=== PATIENT | female | born 1970 | race Caucasian/White ===

== ENCOUNTER 2022-10-05 12:44 | Emergency (ER) | payer OTHER, SELFPAY ==
--- NOTE | ~2022-10-05 | XR_ITS ---
EXAMINATION: XR CHEST CLINICAL INFORMATION: Cough COMPARISON: 09/11/2014 TECHNIQUE: Frontal view of the chest was obtained. FINDINGS: The lungs are well expanded. There is no focal consolidation, edema, or effusion. No pneumothorax. The cardiomediastinal silhouette is within normal limits. No acute osseous abnormality. XR/XR chest 1V IMPRESSION: No acute pulmonary disease.
[2022-10-05 12:54] VITALS: BP 146/86; PULSE 118; RESP 16; TEMP 36.6; O2SAT 97; BMI 29.7
--- NOTE | 2022-10-05 12:54 | ED_ITS ---
HPI - URI/Sore Throat General Chief Complaint: General Medical <GENA Shetty - Last Filed: 10/05/22 12:59> Stated Complaint: ? COVID <GENA Shetty - Last Filed: 10/05/22 12:59> Time Seen by Provider: 10/05/22 13:59 <GENA Shetty - Last Filed: 10/05/22 12:59> Source: patient and family <GENA Norman Last Filed: 10/05/22 14:50> Mode of arrival: ambulatory <GENA Norman Last Filed: 10/05/22 14:50> Limitations: language barrier (Uzbek-speaking) <GENA Norman Last Filed: 10/05/22 14:50> History of Present Illness HPI Narrative: 52yoF who denies any medical history or denies taking any medications who is presenting to the ER with complaints of chills, fatigue, malaise and body aches that started yesterday. She reports that she was exposed to COVID 2 days ago. She is here with her daughter and her grand kids to just tested positive for COVID as well they have similar symptoms. She denies any measured fevers, dizziness, neck pain / stiffness, change in vision, ear pain, sore throat, trouble swallowing or breathing, chest pain or shortness of breath, dyspnea on exertion, orthopnea, palpitations, paresthesias, nausea/vomiting / diarrhea constipation, black or bloody stools, abdominal pain, flank pain, dysuria, hematuria, abnormal vaginal discharge, rashes, recent travel, lower extremity more calf tenderness or any other symptoms complaints or concerns at this time. <GENA Norman - Last Filed: 10/05/22 14:50> MD elicited complaint: other (Chills, body aches ) <GENA Norman Last Filed: 10/05/22 14:50> Onset (ago): day(s) (2) <GENA Norman - Last Filed: 10/05/22 14:50> Consistency: constant and progressively worsening <GENA Norman Last Filed: 10/05/22 14:50> Severity: mild <GENA Norman Last Filed: 10/05/22 14:50> Able to tolerate fluids by mouth: Yes <GENA Norman - Last Filed: 10/05/22 14:50> Exacerbating factors: nothing <GENA Norman Last Filed: 10/05/22 14:50> Relieving factors: nothing <GENA Norman Last Filed: 10/05/22 14:50> Context: sick contacts and other(s) with similar symptoms <GENA Norman Last Filed: 10/05/22 14:50> Associated symptoms: chills, myalgias and headache <GENA Norman Last Filed: 10/05/22 14:50> Treatments prior to arrival: none <GENA Norman Last Filed: 10/05/22 14:50> Related Data Home Medications: Previous Rx's Medication Instructions Recorded acetaminophen 160 mg/5 mL oral 975 mg (30.4688 mL) PO Q6H PRN 10/05/22 liquid fever or pain #473 mL ibuprofen 100 mg/5 mL oral 800 mg (40 mL) PO Q6H PRN fever or 10/05/22 suspension (Children's Ibuprofen) pain #473 mL nirmatrelvir 300 mg (150 mg See Rx Instructions PO .COMPLEX 10/05/22 x2)-ritonavir 100 mg tablet,dose #15 ea pack(EUA) (Paxlovid) <GENA Shetty Last Filed: 10/05/22 12:59> Allergies/Adverse Reactions: Allergies Allergy/AdvReac Type Severity Reaction Status Date / Time NSAIDS (Non-Steroidal Allergy Unknown UNKNOWN Unverified 07/14/20 18:46 Anti-Inflamma [NSAIDS (NON-STEROIDAL ANTI-INFLAMMA] <GENA Shetty Last Filed: 10/05/22 12:59> Review of Systems Review of Systems: Constitutional : No Weight loss, No Fever, + Chills, No Night Sweats, + Fatigue, + Malaise ENT/Mouth : No Hearing loss, No Ear Pain, No Nasal Congestion, No Sinus Pain, No Hoarseness, No sore throat, No Rhinorrhea, No Swallowing Difficulty Eyes: No Eye Pain, No Swelling, No Redness, No Foreign Body, No Discharge, No Vision Changes Cardiovascular : No Chest Pain, No SOB, No Dyspnea on Exertion, No Orthopnea, No Edema, No Palpitations Respiratory : No Cough, No Sputum, No Wheezing, No Smoke Exposure, No Dyspnea Gastrointestinal : No Nausea, No Vomiting, No Diarrhea, No Constipation, No abdominal Pain, No Hematochezia, No Melena Genitourinary : no irregular bleeding, No Dysuria, No Urinary Frequency, No Hematuria, No Urinary Incontinence, No Urgency, No Flank Pain, No Urinary Flow Changes, No Hesitancy Musculoskeletal : No joint pain, + Myalgias, No Joint Swelling Skin : No Skin Lesions, No rash Neuro : No Weakness, No Numbness, No Paresthesias, No Loss of Consciousness, No Dizziness, No Headache Psych : No Anxiety/Panic, No Depression, No SI/HI/AH/VH, No Social Issues, Heme/Lymph: No Bruising, No Bleeding,No Lymphadenopathy Endocrine : No Polyuria, No Polydipsia, No Temperature Intolerance <GENA Norman - Last Filed: 10/05/22 14:50> Yes all other systems are reviewed and are negative <GENA Norman - Last Filed: 10/05/22 14:50> [facility] Past Medical History Attestation statement: The following information was validated with the patient. <GENA Norman - Last Filed: 10/05/22 14:50> Source: old records reviewed, obtained from family and nursing notes reviewed <GENA Norman - Last Filed: 10/05/22 14:50> Social History Social History: Social History Advance Directives: No <GENA Shetty - Last Filed: 10/05/22 12:59> Physical Exam Vital Signs: Vital Signs: Last Vital Signs Temp 98.1 F 10/05/22 14:18 Pulse 109 H 10/05/22 14:18 Resp 16 10/05/22 14:18 BP 147/66 H 10/05/22 14:18 Pulse Ox 96 10/05/22 14:18 O2 Del Method 10/05/22 14:18 BMI result Body Mass Index 29.7 <GENA Shetty Last Filed: 10/05/22 12:59> Vital Signs: Last Vital Signs Temp 98.1 F 10/05/22 14:18 Pulse 109 H 10/05/22 14:18 Resp 16 10/05/22 14:18 BP 147/66 H 10/05/22 14:18 Pulse Ox 96 10/05/22 14:18 O2 Del Method 10/05/22 14:18 BMI result Body Mass Index 29.7 Vital signs reviewed. Blood pressure 146/86. Pulse 118 Respiration normal. Oxygen normal. Temperature normal. <GENA Norman - Last Filed: 10/05/22 14:50> Appearance: Alert. Oriented X3. No acute distress. Head: Normal external exam. Normocephalic. Atraumatic. Eyes: PERRLA. EOMI. Conjunctiva and sclera normal. Eyelids normal. ENT: EAC normal. TM's Normal. Pharynx normal. Uvula midline. Moist mucous membranes. No lesions/ulcerations or masses noted on the tongue. Normal voice. No trismus noted. No drooling noted. No muffled voice noted. Neck: Normal inspection. Neck supple. FROM. No adenopathy. Thyroid Normal. No meningeal signs. CVS: Normal heart rate and rhythm. Heart sound normal. Pulses normal throughout. No murmurs/rales/gallops. Respiratory: No respiratory distress. Painless inspiration. Breath sounds normal. No wheezes/rales/rhonchi noted. Chest nontender. No accessory muscle usage noted or decreased air movement noted. Abdomen: Soft and nontender. Back: Full range of motion noted. Nontender. Skin: Skin warm and dry. Normal skin color. Normal skin turgor. No rashes/lesions/lacerations noted. Extremities: Extremities exhibit normal range of motion and nontender. Neuro: Oriented X 3. No motor deficit. No sensory deficit. Reflexes normal. Normal steady gait. No focal neuro deficits noted. CN's II-XII intact bilaterally? Vascular: + radial pulses. Normal cap refill. No cyanosis noted to upper extremity nails <GENA Norman - Last Filed: 10/05/22 14:50> Course Course Course Narrative: RME-- 52yo F w/PMHx fibromyalgia, OA, depression c/o cough, rhinnorhea, sore throat, myalgias x few days. Admits was exposed to COVID on Saturday tachycardic in triage to 120's COVID-19/influenza/RSV, CXR, & EKG ordered in triage <GENA Shetty Last Fi led: 10/05/22 12:59> Reevaluation(s) Reevaluation #1: Patient positive for COVID. Chest x-ray within normal limits. No additional labs or imaging indicated at this time. Patient does not take any medications therefore she would be a candidate for antiviral for COVID Paxlovid. I gave her FAC she printed from online and patient will decide if she wants to take that or not. Will DC home with instructions to self isolate and to return if any new or worsening symptoms. Patient with family at bedside understand agree this plan. <GENA Norman Last Filed: 10/05/22 14:50> Time: 14:48 <GENA Norman Last Filed: 10/05/22 14:50> Medical Decision Making Medical Decision Making Lab Attestation: I reviewed the patient's lab results. <GENA Norman Last Filed: 10/05/22 14:50> Independent interpretation of EKG, rhythm strip, radiology study: Independent interp EKG,rhythm strip, radiology study My interpretation is CXR revealed FINDINGS: The lungs are well expanded. There is no focal consolidation, edema, or effusion. No pneumothorax. The cardiomediastinal silhouette is within normal limits. No acute osseous abnormality. XR/XR chest 1V IMPRESSION: No acute pulmonary disease. <GENA Norman Last Filed: 10/05/22 14:50> Independent historian (e.g., spouse, EMS, friend): Independent historian (e.g., spouse, EMS, friend) Clinical information obtained from an independent historian. History obtained from or confirmed by: Other (family) <GENA Norman Last Filed: 10/05/22 14:50> Discharge Plan Discharge Clinical Impression: COVID-19 <GENA Shetty Last Filed: 10/05/22 12:59> Patient Disposition: Home, Self-Care <GENA Shetty Last Filed: 10/05/22 12:59> Instructions: COVID-19 (Coronavirus Disease 2019) (ED) <GENA Shetty - Last Filed: 10/05/22 12:59> Prescriptions: New Paxlovid (EUA) 300 mg (150 mg x 2)-100 mg tablets,dose pack See Rx Instructions PO .COMPLEX Qty: 15 0RF Rx Instructions: take TWO 150 mg tablets of nirmatrelvir with ONE 100 mg tablet of ritonavir twice daily for 5 days. Dip 15 pills ibuprofen [Children's Ibuprofen] 100 mg/5 mL suspension 800 mg PO Q6H PRN (Reason: fever or pain) Qty: 473 0RF acetaminophen 160 mg/5 mL liquid 975 mg PO Q6H PRN (Reason: fever or pain) Qty: 473 0RF <GENA Shetty - Last Filed: 10/05/22 12:59> Referrals: Physician,Unknown J [Primary Care Provider] - 5 days (your pcp) <GENA Shetty - Last Filed: 10/05/22 12:59> Print Language: Uzbek <GENA Shetty - Last Filed: 10/05/22 12:59>
--- NOTE | 2022-10-05 12:55 | ECG_ITS ---
Test Reason : TACHYCARDIA Blood Pressure : / mmHG Vent. Rate : 119 BPM Atrial Rate : 119 BPM P-R Int : 150 ms QRS Dur : 086 ms QT Int : 326 ms P-R-T Axes : 029 -02 014 degrees QTc Int : 458 ms Sinus tachycardia Otherwise normal ECG When compared with ECG of 10-SEP-2014 23:55, No significant change was found Referred By: Liliana Sexton Electronically Signed By:AMY HIDALGO MD
--- OUTSIDE RECORDS SUMMARY | 2022-10-05 13:46 | XMS_ITS | Continuity of Care Document ---
:1970 Author Organization [facility] Address [address] [place] [id number]- Care Team Providers Name Role Phone Juani NORIEGA, Afia Stahl Primary Care Physician [place] [facility] [place]/11/20 - 01/21/20 [facility] [address] [place] [address]- [facility] Attending Physician: Admtr, Tan8 Admitting Physician: Admtr, Ar8 Referring Physician: Admtr, Ar8 Allergies, Adverse Reactions, Alerts Substance Reaction Severity Status NKA Active Medications albuterol CFC free 90 mcg/inh inhalation aerosol 1, puffs, Inhalation, 4 times a day, PRN, # 25 Gm, Refills 0, Tot. Refills 0, Maintenance, 11/21/17 11:45:44, Aerosol, Route to Pharmacy Electronically, [id number], [facility]/pharmacy #[id number], Compound Start Date: 11/21/17 Status: OrderedChildren's Ibuprofen Briceño 100 mg/5 mL oral suspension 20 mL = 400 mg, By Mouth, Every 6 hours, PRN as needed for pain, Take as needed with food or milk not to exceed 4 doses/day, # 240 mL, 0 Refills, Maintenance, 06/08/19 14:00:11 EDT, Suspension, instructions in filipino Start Date: 06/08/19 Status: OrderedFlonase 50 mcg/inh nasal spray 1 sprays, Nares, Both, 2 times a day, # 16 Gm, 2 Refills, Maintenance, 02/03/19 10:56:14 EDT, [place],1 sprays Nares, Both 2 times a day Start Date: 02/03/19 Status: OrderedFolding Wheeled Walker Folding Wheeled Walker, See Instructions, # 1 each, Refills 0, Tot. Refills 0, Maintenance, Wheeled walker to aid with mobility Dx: Left ankle sprain and chronic bilateral knee OA TALON 99 Ht 160 cm, Wt 178 lbs, 09/21/19 10:26:05 EST, Compound Start Date: 09/21/19 Status: Orderedgabapentin 100 mg oral capsule 200 mg, 2, capsule, By Mouth, 2 times a day, rx by rheumatology, # 120 capsule, Refills 0, Maintenance, 06/05/18 10:38:42 EDT Start Date: 06/05/18 Status: Orderednabumetone 750 mg oral tablet 1 tablet = 750 mg, By Mouth, 2 times a day, rx by rheumatology, # 60 tablet, 0 Refills, Maintenance,06/05/18 10:38:38 EDT, Tablet Start Date: 06/05/18 Status: Orderedomeprazole 20 mg oral enteric coated capsule 1 capsule = 20 mg, By Mouth, Daily, decrease in dose, # 90 capsule, 0 Refills, Maintenance, 02/07/1811:43:01 EDT, EC Capsule Start Date: 02/07/18 Status: OrderedPROzac 20 mg oral capsule 20 mg, 1, capsule, By Mouth, Daily, rx by psych, # 60 capsule, Refills 0, Maintenance, 04/18/17 15:50:03 EDT Start Date: 04/18/17 Status: Orderedpseudoephedrine 30 mg/5 mL oral liquid 10 mL = 60 mg, By Mouth, 4 times a day, PRN for cold symptoms, Take as needed for congestion, # 120 mL, 0 Refills, Maintenance, 12/02/18 16:53:45 EST, Liquid, directions in filipino Start Date: 12/02/18 Stop Date: 12/05/18 Status: OrderedReadi-Cat 2 oral suspension See Instructions, Oral Contrast 2 Bottles 450 ml each Dx: Hernia, # 900 mL, 0 Refills, Maintenance, 07/17/19 9:53:08 EDT, Oral Contrast; 2 Bottles 450 ml each; Dx: Hernia Start Date: 07/17/19 Status: OrderedSimply Saline 0.9% spray 1 sprays, Nares, Both, Every 4 hours, # 45 mL, 5 Refills, Maintenance, 02/03/19 10:56:15 EDT, 1 sprays Nares, Both Every 4 hours Start Date: 02/03/19 Status: OrderedTylenol Extra Strength 500 mg/15 mL oral liquid 15 mL = 500 mg, By Mouth, Every 4 hours, PRN as needed for pain, # 480 mL, 0 Refills, Maintenance, 12/02/18 16:56:05 EST, Liquid Start Date: 12/02/18 Status: Ordered Problem List Condition Effective Dates Status Health Status Informant Allergic rhinitis(Confirmed) Active Cholecystectomy(Confirmed) 12/07/11 Active Chronic back pain(Confirmed) Active Diastasis recti; no surgical Active intervention recommended(Confirmed) Dysuria(Confirmed) Active Fibroids(Confirmed) Active Fibromyalgia(Confirmed) Active GERD (gastroesophageal reflux Active disease)(Confirmed) Iron deficiency anemia(Confirmed) 12/07/11 Active Knee pain, bilateral-seen by NOES Active 03/09, dx w/ retropatellar chondrosis, referred to PT, lt knee w/ mild OA on xray from 2012(Confirmed) Menopause(Confirmed) Active Obesity (BMI 30-39.9)(Confirmed) Active OA (osteoarthritis) of knee, Active L>R(Confirmed) Elbow pain, right(Confirmed) Active Sciatica of right side(Confirmed) Active Poor dentition s/p full mouth Active extraction 01/10(Confirmed) Social History Social History Type Response Smoking Status Never smoker entered on: 06/07/15 Sex
--- OUTSIDE RECORDS SUMMARY | 2022-10-05 13:46 | XMS_ITS | Continuity of Care Document ---
:1970 Author Organization [facility] Address [address] [place] [address] Drive [address] [place] [phone]- Care Team Providers Name Role Phone Juani NORIEGA, Afia Stahl Primary Care Physician Encounter [facility] [place] Date(s): 03/23/20 - 04/22/[address] [place] [address] [facility] Attending Physician: Admtr, Tan8 Admitting Physician: Admtr, Ar8 Referring Physician: Admtr, Ar8 Allergies, Adverse Reactions, Alerts Substance Reaction Severity Status NKA Active Medications albuterol CFC free 90 mcg/inh inhalation aerosol 1, puffs, Inhalation, 4 times a day, PRN, # 25 Gm, Refills 0, Tot. Refills 0, Maintenance, 11/21/17 11:45:44, Aerosol, Route to Pharmacy Electronically, [id number], [facility]/pharmacy #[id number], Compound Start Date: 11/21/17 Status: OrderedChildren's Ibuprofen Briceño 100 mg/5 mL oral suspension 20 mL = 400 mg, By Mouth, Every 6 hours, PRN as needed for pain, Take as needed with food or milk not to exceed 4 doses/day, # 240 mL, 0 Refills, Maintenance, 06/08/19 14:00:11 EDT, Suspension, instructions in vietnamese Start Date: 06/08/19 Status: OrderedFlonase 50 mcg/inh nasal spray 1 sprays, Nares, Both, 2 times a day, # 16 Gm, 2 Refills, Maintenance, 02/03/19 10:56:14 EDT, [place],1 sprays Nares, Both 2 times a day [...] Maintenance, 12/02/18 16:53:45 EST, Liquid, directions in vietnamese Start Date: 12/02/18 Stop Date: 12/05/18 Status: [...]
--- OUTSIDE RECORDS SUMMARY | 2022-10-05 13:46 | XMS_ITS | Continuity of Care Document ---
:[address] [facility] Address [address] [place] [address]- Care Team Providers Name Role Phone Afia Gloria MD Primary Care Physician [place] [facility] [place] 07/09/[address] [address]- [facility] Attending Physician: Admtr, Ar8 Admitting Physician: Admtr, Ar8 Referring Physician: Admtr, Ar8 Allergies, Adverse Reactions, Alerts Substance Reaction Severity Status NKA Active Medications albuterol CFC free 90 mcg/inh inhalation aerosol 1, puffs, Inhalation, 4 times a day, PRN, # 25 Gm, Refills 0, Tot. Refills 0, Maintenance, 11/21/17 11:45:44, Aerosol, Route to Pharmacy Electronically, [id number], [facility]/pharmacy #[id number], Compound Start Date: 11/21/17 Status: OrderedChildren's Ibuprofen Briceño 100 mg/5 mL oral suspension 20 mL = 400 mg, By Mouth, Every 6 hours, PRN as needed for pain, Take as needed with food or milk not to exceed 4 doses/day, # 240 mL, 0 Refills, Maintenance, 06/08/19 14:00:11 EDT, Suspension, instructions in qatari Start Date: 06/08/19 Status: OrderedFlonase 50 mcg/inh nasal spray 1 sprays, Nares, Both, 2 times a day, # 16 Gm, 2 Refills, Maintenance, 02/03/19 10:56:14 EDT, [place],1 sprays Nares, Both 2 times a day [...] 06/05/18 10:38:42 EDT Start Date: 06/05/18 Status: OrderedMelatonin 1 mg/mL oral solution TAKE 3 ML BY MOUTH AT BEDTIME Start Date: 06/09/20 Status: Orderednabumetone 750 mg oral tablet 1 [...] Maintenance, 12/02/18 16:53:45 EST, Liquid, directions in qatari Start Date: 12/02/18 Stop Date: 12/05/18 Status: [...]
--- OUTSIDE RECORDS SUMMARY | 2022-10-05 13:46 | XMS_ITS | Continuity of Care Document ---
:1970 Author Organization [facility] Address [address] [place] [address]- Care Team Providers Name Role Phone Afia Gloria MD Primary Care Physician [place] [facility] [place]06[place] - 10/31/[address] [address] Attending Physician: Afia Gloria MD Admitting Physician: Afia Gloria MD Referring Physician: Afia Gloria MD Allergies, Adverse Reactions, Alerts Substance Reaction Severity Status NKA Active Immunizations Given and Recorded Vaccine Date Status Refusal Reason SARS-CoV-2 (COVID-19) mRNA BNT-162b2 vac1 07/25/21 Given SARS-CoV-2 (COVID-19) mRNA BNT-162b2 vac2 07/04/21 Given 1Result Comment: normal saline diluent added lot number [id number] expires Result Comment: normal saline diluent added lot number [id number] expires 01/25/2023 Medications albuterol CFC free 90 mcg/inh inhalation aerosol 1, puffs, Inhalation, 4 times a day, PRN, # 25 Gm, Refills 0, Tot. Refills 0, Maintenance, 11/21/17 11:45:44, Aerosol, Route to Pharmacy Electronically, [id number], [facility]/pharmacy #[id number], Compound Start Date: 11/21/17 Status: OrderedFlonase 50 mcg/inh nasal spray 1 sprays, Nares, Both, 2 times a day, # 16 Gm, 2 Refills, Maintenance, 01/09/21 12:16:00 EDT, [place],[facility]/pharmacy #[id number], 1 sprays Nares, Both 2 times a day, 160, cm, 09/18/19 9:57:00 EST, Height Start Date: 01/09/21 Status: OrderedMelatonin 1 mg/mL oral solution TAKE 3 ML BY MOUTH AT BEDTIME Start Date: 06/09/20 Status: OrderedPROzac 20 mg oral capsule 20 mg, 1, capsule, By Mouth, Daily, rx by psych, # 60 capsule, Refills 0, Maintenance, 04/18/17 15:50:03 EDT Start Date: 04/18/17 Status: OrderedTylenol Extra Strength 500 mg/15 mL [...]
--- OUTSIDE RECORDS SUMMARY | 2022-10-05 13:46 | XMS_ITS | Continuity of Care Document ---
:1970 Author Organization [facility] Address [address] [place] [address]- Care Team Providers Name Role Phone Juani NORIEGA, Afia Stahl Primary Care Physician Encounter [facility] Date(s): 05/26/21 - 06/25/[address] [address]- Allergies, Adverse Reactions, Alerts Substance Reaction Severity Status NKA Active Medications albuterol CFC free 90 mcg/inh inhalation aerosol 1, puffs, Inhalation, 4 times a day, PRN, # 25 Gm, Refills 0, Tot. Refills 0, Maintenance, 11/21/17 11:45:44, Aerosol, Route to Pharmacy Electronically, [id number], [facility]/pharmacy #[id number], Compound Start Date: 11/21/17 Status: OrderedFlonase 50 mcg/inh nasal spray 1 sprays, Nares, Both, 2 times a day, # 16 Gm, 2 Refills, Maintenance, 01/09/21 12:16:00 EDT, [place],[facility]/pharmacy #[id number], 1 sprays Nares, Both 2 times [...]
--- OUTSIDE RECORDS SUMMARY | 2022-10-05 13:46 | XMS_ITS | Continuity of Care Document ---
:1970 Author Organization [facility] Address [address] [place] [address] Drive [address] [place] [address]- Care Team Providers Name Role Phone Juani NORIEGA, Afia Stahl Primary Care Physician [place] [facility] [place] 12/24/19 - 04/22/[address] [place] [address]- [facility] Attending Physician: Chris NORIEGA, Deny Referring Physician: Eliane NORIEGA, Brandon Rivas Allergies, Adverse Reactions, Alerts Substance Reaction Severity Status NKA Active Medications albuterol CFC free 90 mcg/inh inhalation aerosol 1, puffs, Inhalation, 4 times a day, PRN, # 25 Gm, Refills 0, Tot. Refills 0, Maintenance, 11/21/17 11:45:44, Aerosol, Route to Pharmacy Electronically, [id number], [facility]/pharmacy #[id number], Compound Start Date: 11/21/17 Status: OrderedChildren's Ibuprofen Briceño 100 mg/5 mL oral suspension 20 mL = 400 mg, By Mouth, Every 6 hours, PRN as needed for pain, Take as needed with food or milk not to exceed 4 doses/day, # 240 mL, 0 Refills, Maintenance, 06/08/19 14:00:11 EDT, Suspension, instructions in burundian Start Date: 06/08/19 Status: OrderedFlonase 50 mcg/inh nasal spray 1 sprays, Nares, Both, 2 times a day, # 16 Gm, 2 Refills, Maintenance, 02/03/19 10:56:14 EDT, [place],1 sprays Nares, Both 2 times a day [...] Maintenance, 12/02/18 16:53:45 EST, Liquid, directions in burundian Start Date: 12/02/18 Stop Date: 12/05/18 Status: [...] anemia(Confirmed) 12/07/11 Active Knee pain, bilateral-seen by MEHNAZ Active 03/09, dx w/ retropatellar chondrosis, referred [...]
--- OUTSIDE RECORDS SUMMARY | 2022-10-05 13:46 | XMS_ITS | Continuity of Care Document ---
:1970 Author Organization [facility] Address [address] [place] [address]- Care Team Providers Name Role Phone Juani NORIEGA, Afia Stahl Primary Care Physician [place] [facility] [place] - 08/24/[address] [address]- Attending Physician: Joe Chavira Admitting Physician: Joe Chavira Referring Physician: AdmtrJoe Allergies, Adverse Reactions, Alerts Substance Reaction Severity Status NKA Active Immunizations Given and Recorded Vaccine Date Status Refusal Reason SARS-CoV-2 (COVID-19) mRNA BNT-162b2 vac1 07/25/21 Given SARS-CoV-2 (COVID-19) mRNA BNT-162b2 vac2 07/04/21 Given 1Result Comment: normal saline diluent added lot number [id number] expires Result Comment: normal saline diluent added lot number [id number] expires 01/25/2023 Medications albuterol CFC free 90 mcg/inh inhalation aerosol 1, puffs, Inhalation, 4 times a day, PRN, # 25 Gm, Refills 0, Tot. Refills 0, Maintenance, 11/21/17 11:45:44, Aerosol, Route to Pharmacy Electronically, [id number], [facility][id number], Compound Start Date: 11/21/17 Status: OrderedFlonase 50 mcg/inh nasal spray 1 sprays, Nares, Both, 2 times a day, # 16 Gm, 2 Refills, Maintenance, 01/09/21 12:16:00 EDT, [place],[id number], 1 sprays Nares, Both 2 times [...] knee w/ mild OA on xray from 2013(Confirmed) Menopause(Confirmed) Active Obesity (BMI 30-39.9)(Confirmed) Active OA (osteoarthritis) of knee, Active L>R(Confirmed) Elbow pain, right(Confirmed) Active Sciatica of right side(Confirmed) Active Poor dentition s/p full mouth Active extraction 01/10(Confirmed) Social History Social History Type Response Smoking Status Never smoker entered on: 06/07/15 Sex
--- OUTSIDE RECORDS SUMMARY | 2022-10-05 13:46 | XMS_ITS | Continuity of Care Document ---
:1970 Author Organization [facility] Address [address] [place] [address]- Care Team Providers Name Role Phone Juani NORIEGA, Afia Stahl Primary Care Physician [place] [facility] [place]18[place] - 07/14/[address] [address]- Attending Physician: Not on Staff, Attending MD Allergies, Adverse Reactions, Alerts Substance Reaction Severity Status NKA Active Immunizations Given and Recorded Vaccine Date Status Refusal Reason SARS-CoV-2 (COVID-19) mRNA BNT-162b2 vac1 07/04/21 Given 1Result Comment: normal saline diluent added lot number [id number] expires 01/25/2023 Medications albuterol CFC free 90 mcg/inh inhalation aerosol 1, puffs, Inhalation, 4 times a day, PRN, # 25 Gm, Refills 0, Tot. Refills 0, Maintenance, 11/21/17 11:45:44, Aerosol, Route to Pharmacy Electronically, [id number], [facility]/pharmacy #[id number], Compound Start Date: 11/21/17 Status: OrderedFlonase 50 mcg/inh nasal spray 1 sprays, Nares, Both, 2 times a day, # 16 Gm, 2 Refills, Maintenance, 01/09/21 12:16:00 EDT, [place],[facility]/pharmacy #[id number], 1 sprays Nares, Both 2 times [...]
--- OUTSIDE RECORDS SUMMARY | 2022-10-05 13:47 | XMS_ITS | Continuity of Care Document ---
:1970 Author Organization [facility] Address [address] [place] [address]- Care Team Providers Name Role Phone Juani NORIEGA, Afia Stahl Primary Care Physician Encounter [facility] Date(s): 06/13/21 - 07/13/[address] [address]- Allergies, Adverse Reactions, Alerts Substance Reaction Severity Status NKA Active Immunizations Given and Recorded Vaccine Date Status Refusal Reason SARS-CoV-2 (COVID-19) mRNA BNT-162b2 vac1 07/04/21 Given 1Result Comment: normal saline diluent added lot number [id number] expires 01/25/2023 Medications albuterol CFC free 90 mcg/inh inhalation aerosol 1, puffs, Inhalation, 4 times a day, PRN, # 25 Gm, Refills 0, Tot. Refills 0, Maintenance, 11/21/17 11:45:44, Aerosol, Route to Pharmacy Electronically, [id number], [facility]pharmacy #[id number], [place] Start Date: 11/21/17 Status: OrderedFlonase 50 mcg/inh nasal spray 1 sprays, Nares, Both, 2 times a day, # 16 Gm, 2 Refills, Maintenance, 01/09/21 12:16:00 EDT, [place],[facility]acy #[id number], 1 sprays Nares, Both 2 times [...]
[2022-10-05 13:55] LABS: Influenza A PCR NEGATIVE (Negative); Influenza B PCR NEGATIVE (Negative); Resp Syncy Virus RNA Qual PCR NEGATIVE (Negative); SARS COV2 PCR INHOUSE POSITIVE (Negative)
[2022-10-05 14:18] VITALS: BP 147/66; PULSE 109; RESP 16; TEMP 36.7; O2SAT 96
== END 2022-10-05 14:54 | disposition home or self-care (01) ==
PROVIDERS: Physician Assistant; Emergency Provider Emergency Medicine Emergency Medical Services
DX: U07.1 COVID-19 (principal); R00.0 Tachycardia, unspecified; Z79.899 Other long term (current) drug therapy
CPT/HCPCS: 0241U; 71045; 93005; 99283; 99284